=== PATIENT | male | born 1960 | race African-American/Black ===

== ENCOUNTER 2019-01-02 01:30 | Inpatient (IN) | payer OTHER ==
[~2019-01-02] VITALS: Ht 175.3 cm; Wt 120.2 kg
[2019-01-02 01:37] VITALS: BP 188/82
[2019-01-02] MEDS ORDERED: ZESTRIL10 MG PO (01:43)
[2019-01-02 02:03] LABS: ABSOLUTE EOSINOPHILS 0.1 thou/uL (0.0-0.7); ABSOLUTE LYMPHOCYTES 2.7 thou/uL (0.8-5.3); ABSOLUTE NEUTROPHILS 3.6 thou/uL (1.6-8.1); BASOPHILS 0.4 %; EOSINOPHILS 1.4 %; HEMATOCRIT 41.2 % (42.0-52.0); HEMOGLOBIN 13.5 gm/dL (14.0-18.0); LYMPHOCYTES 36.4 %; MCH 27.4 pg (26.0-34.0); MCHC 32.7 g/dL (28.0-37.0); MCV 83.6 fL (80.0-100.0); MPV 7.9 fl. (7.2-11.1); NUCLEATED RBCS 0 /100WBC; PLATELET COUNT* 231 thou/uL (150-400); POLYS 48.8 %; RBC 4.93 mil/uL (4.50-6.00); RDW-CV 14.8 % (10.5-14.5); WBC 7.4 thou/uL (4.0-11.0)
[2019-01-02 02:03] LABS: BE -2.3 mmol/L (-2 to +3); PCO2 34.1 mmHg (35.0-45.0); PO2 102.2 mmHg (75.0-100.0); pH 7.416 (7.340-7.450)
[2019-01-02 02:13] LABS: ANION GAP 6 mmol/L (7-16); BUN 26 mg/dL (7-18); CALCIUM 8.6 mg/dL (8.5-10.1); CHLORIDE 105 mmol/L (98-107); CO2 29 mmol/L (21-32); CREATININE 1.5 mg/dL (0.6-1.3); GLUCOSE 121 mg/dL (70-99); POTASSIUM 4.1 mmol/L (3.5-5.1); SODIUM 140 mmol/L (136-145)
[2019-01-02 02:31] LABS: ALBUMIN 3.5 g/dL (3.4-5.0); ALKALINE PHOSPHATASE 67 U/L (46-116); LIPASE 226 U/L (73-393); NT-PRO BRAIN NAT PEPTIDE 21 pg/mL (<300); SGOT 17 U/L (15-37); SGPT 25 U/L (30-65); TOTAL BILIRUBIN 0.1 mg/dL (<0.1-1.0); TOTAL PROTEIN 6.9 g/dL (6.4-8.2); TROPONIN-I LEVEL <0.06 ng/mL (<0.06)
[2019-01-02 03:12] VITALS: BP 158/91
[2019-01-02 03:26] LABS: URINE BILIRUBIN NEGATIVE (Negative); URINE BLOOD NEGATIVE (Negative); URINE CLARITY CLEAR; URINE COLOR YELLOW; URINE GLUCOSE-RANDOM NEGATIVE (Negative); URINE KETONES NEGATIVE (Negative); URINE LEUKOCYTES-REFLEX NEGATIVE (Negative); URINE NITRITE-REFLEX NEGATIVE (Negative); URINE PROTEIN NEGATIVE (Negative); URINE UROBILINOGEN 0.2 E.U./dl (0.2-1.0)
[2019-01-02 03:33] LABS: AMP/METHAMP Negative (Negative); BARBITURATES Negative (Negative); BENZODIAZEPINES Negative (Negative); COCAINE Negative (Negative); METHADONE Negative (Negative); OPIATES Negative (Negative); PCP Negative (Negative); THC Negative (Negative)
[2019-01-02 03:50] VITALS: BP 146/89
--- NOTE | 2019-01-02 04:49 | NUR ---
PATIENT ARRIVED ON UNIT AT 0330. ALERT AND ORIENTED TIMES FOUR. UP INDEPENDENTLY. 2L O2 VIA NC. NO COMPLAINTS OF PAIN OR DISCOMFORT NOTED. WILL CONTINUE TO MONITOR
[2019-01-02 08:00] VITALS: BP 133/80
--- NOTE | 2019-01-02 11:43 | NUR ---
MET WITH PT TO DISCUSS HOME SITUATION/DC PLANNING. PT LIVES WITH BROTHER AND NEPHEW. HE IS INDEPENDENT AND ACTIVE, USES CPAP. HE FOLLOWS WITH NAKIA CHOI NP AT THE [facility]. PT PLANS TO RETURN HOME AT DC. WILL FOLLOW
[2019-01-02 15:19] VITALS: BP 154/92
--- NOTE | 2019-01-02 18:02 | NUR ---
ASSUMED PT CARE AT 0730, FULL ASSESMENT DONE CHARTED. PT A/O X4, UP AD SUDARSHAN, ON 2L O2 THIS AM, REMOVED THIS AFTERNOON, 02 SAT 95% ON RA. DENIES PAIN, VSS, SB-SR ON THE MONITOR. PT USES CALL LIGHT APPROPRIALTY. WILL CONTINUE WITH PLAN OF CARE.
--- NOTE | 2019-01-02 19:35 | EXE ---
[place] [address] STRESS ECHOCARDIOGRAM Name: SAHILAgROSEMARIE Room: [address] IN [facility]#: [id number] Admission: 01/02/19 Attend Phys: Haresh Troy, Discharge: Date of : 64 Date of Service: 01/02/19 1935 Report #: [id number] THIS REPORT FOR: //name// APPROVED REPORT Study performed: 01/02/2019 14:22:39 Exam: Stress Echocardiogram Indication: Dyspnea Patient Location: In-Patient Stress Nurse: Lissette iLnares RN Room #: [facility] Supervising Physician: Darryl Colón MD Status: routine Ht: 5 ft 9 in HR: 55 bpm BP: 136/81 mmHg Rhythm: NSR Medical History Medications: Lisinopril Cardiac Risk Factors: HTN Procedure The patient underwent an Exercise Stress Test using the Benedicto Protocol. Blood pressure, heart rate, and EKG were monitored. An Echocardiogram was performed by power plant technician in four stages in quad fashion. At peak stress, four selected images were obtained and placed side by side with resting images for comparison. Stress Test Details Stress Test: Exercise stress testing was performed using a Benedicto protocol. HR Resting HR: 55 bpm Max Heart Rate (APMHR): 164 bpm Max HR Achieved: 146 bpm Target HR (85% APMHR): 139 bpm % of APMHR: 89 Recovery HR: 88 bpm HR response to stress: Normal HR response to stress BP Resting BP: 136/81 mmHg Max BP: 231/82 mmHg Recovery BP: 156/80 mmHg BP response to stress: Abnormal hypertensive response to [address] [address] STRESS ECHOCARDIOGRAM Name: ROSEMARIE FRAGOSO Ishaan Room: [address]#: [id number] Admission: 01/02/19 Attend Phys: Haresh Troy, Discharge: Date of : 64 Date of Service: 01/02/19 1935 Report #: [id number] stress. ECG Resting ECG: Sinus Rhythm Stress ECG: Sinus Tachycardia ST Change: None Arrhythmia: None Recovery ECG: Sinus Rhythm Recovery ST Change: None Recovery Arrhythmia: None Clinical Reason for Termination: Completed protocol, high blood pressure Exercise duration: 7 min sec Highest Stage Achieved: Stage 3: 3.4 mph at 14% grade. Exercise capacity: 8.8 METs The patient tolerated standard Benedicto protocol exercise without significant symptoms. Patient exhibited good exercise tolerance. Stress ECG Conclusion The baseline 12-lead EKG shows sinus rhythm without ST or T wave abnormality. EKGs obtained during and post exercise showed sinus rhythm and sinus tachycardia with no significant ST or T wave changes when compared baseline. There were no stress-induced arrhythmias. Pre-Stress Echo The resting Echocardiogram showed normal left ventricular contractility with an estimated Ejection Fraction of about 65-70%. Post-Stress Echo The stress Echocardiogram showed normal left ventricular contractility with an estimated Ejection Fraction of about >70%. Conclusion Clinical Response: Non-ischemic Exercise Capacity: Average Stress ECG Response: Non-ischemic Stress Echo Images: [place] [address] STRESS ECHOCARDIOGRAM Name: ROSEMARIE FRAGOSO Room: [address]#: [id number] Admission: 01/02/19 Attend Phys: Haresh Troy, Discharge: Date of : 64 Date of Service: 01/02/191934 Report #: [id number] Other Information Study Quality: Good <ELECTRONICALLY SIGNED> By: Darryl Colón MD, FACC 01/02/191934 34 34 Darryl Colón MD, FACC /INF
[2019-01-02 20:00] VITALS: BP 142/71
[2019-01-03] VITALS: BP 141/65
[2019-01-03 04:00] VITALS: BP 112/51; BP 138/77
--- NOTE | 2019-01-03 05:46 | NUR ---
ASSUMED CARE OF PT AFTER REPORT AT 1930. PT A&OX4. VSS. PHYSICAL ASSESSMENT COMPLETED AND CHARTED. PT ON RA/CPAP WHEN SLEEPING. PT UPADLIB TO RESTROOM. PT DENIES ANY PAIN OR SOA. PT ABLE TO SLEEP WELL ON BED. CALL LIGHT WITHIN REACH.
[2019-01-03 07:50] VITALS: BP 159/89
--- NOTE | 2019-01-03 10:24 | NUR ---
PT A/O/ TELE TRACKING SR/SB (50'S-70'S) AND ALL VSS ON ROOM AIR. DENIES CP, SOA. PT STATES HIS BREATHING RETURNED TO BASELINE AFTER WEARING O2 IN ER. PT DOES STATES THAT HE OCCASIONALLY FEELS LIGHT HEADED AFTER SITTING DOWN ON TOILET-DENIES STRAINING. LOOKING FORWARD TO DC LATER TODAY. EDUCATED ON SAFETY AND PLAN OF CARE. PLEASE SEE ASSESSMENT FOR ADDITIONAL INFORMATION. WILL CONT TO MONITOR
[2019-01-03] MEDS ORDERED: CEFUROXIME500 MG PO (10:40)
[2019-01-03 10:41] VITALS: BP 159/89
--- NOTE | 2019-01-03 11:00 | EKG ---
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: [facility] : 1960 Requested By: Merlin Lee Order Number: [id number] MD: Manuelito Pappas Measurements Intervals [place] Rate: 67 P: -53 AR: 176 QRS: 18 QRSD: 83 T: 32 QT: 377 QTc: 398 Interpretive Statements Ectopic atrial rhythm Borderline T wave abnormalities No previous ECG available for comparison Electronically Signed On 01-03-2019 11:00:18 CDT by Manuelito Pappas [email or web address] <ELECTRONICALLY SIGNED> By: Manuelito Pappas MD, [facility] 01/03/19 1100 0148 0148 Manuelito Pappas MD, FACC /EPI
[2019-01-03 12:23] VITALS: BP 166/73
== END 2019-01-03 14:40 | disposition home or self-care (01) | DRG 178 ==
LOC: M.ERS 01:30 → M.TBA-ER 02:45 → M.2W 02:45
PROVIDERS: Emergency Medicine; ADMIT Internal Medicine
DX: J69.0 Pneumonitis due to inhalation of food and vomit (principal); N17.9 Acute kidney failure, unspecified; E11.22 Type 2 diabetes mellitus with diabetic chronic kidney disease; I12.9 Hypertensive chronic kidney disease with stage 1 through stage 4 chronic kidney disease, or unspecified chronic kidney disease; N18.2 Chronic kidney disease, stage 2 (mild); Z87.81 Personal history of (healed) traumatic fracture; Z79.899 Other long term (current) drug therapy

== ENCOUNTER 2019-01-06 02:31 | Emergency (ER) | payer OTHER ==
[~2019-01-06] VITALS: Ht 175.3 cm; Wt 117.9 kg
[~2019-01-06 02:31] MED LIST: CEFUROXIME500 MG PO; ZESTRIL10 MG PO
[2019-01-06 02:50] LABS: ABSOLUTE EOSINOPHILS 0.1 thou/uL (0.0-0.7); ABSOLUTE LYMPHOCYTES 2.6 thou/uL (0.8-5.3); ABSOLUTE MONOCYTES 1.2 thou/uL (0.0-1.2); ABSOLUTE NEUTROPHILS 5.3 thou/uL (1.6-8.1); BASOPHILS 0.1 %; EOSINOPHILS 0.9 %; HEMATOCRIT 41.5 % (42.0-52.0); HEMOGLOBIN 13.5 gm/dL (14.0-18.0); LYMPHOCYTES 28.2 %; MCH 27.1 pg (26.0-34.0); MCHC 32.5 g/dL (28.0-37.0); MCV 83.4 fL (80.0-100.0); MONOCYTES 13.3 %; MPV 8.1 fl. (7.2-11.1); NUCLEATED RBCS 0 /100WBC; PLATELET COUNT* 227 thou/uL (150-400); POLYS 57.5 %; RBC 4.98 mil/uL (4.50-6.00); RDW-CV 14.2 % (10.5-14.5); WBC 9.3 thou/uL (4.0-11.0)
[2019-01-06 03:11] LABS: ANION GAP 8 mmol/L (7-16); BUN 23 mg/dL (7-18); CALCIUM 8.4 mg/dL (8.5-10.1); CHLORIDE 104 mmol/L (98-107); CO2 26 mmol/L (21-32); CREATININE 1.2 mg/dL (0.6-1.3); GLUCOSE 116 mg/dL (70-99); POTASSIUM 3.8 mmol/L (3.5-5.1); SODIUM 138 mmol/L (136-145)
[2019-01-06 03:13] LABS: PROTIME 10.7 Seconds (9.20-11.50)
[2019-01-06 03:20] LABS: ALBUMIN 3.4 g/dL (3.4-5.0); ALKALINE PHOSPHATASE 64 U/L (46-116); LIPASE 203 U/L (73-393); SGOT 14 U/L (15-37); SGPT 27 U/L (30-65); TOTAL BILIRUBIN 0.2 mg/dL (<0.1-1.0); TOTAL PROTEIN 6.6 g/dL (6.4-8.2); TROPONIN-I LEVEL <0.06 ng/mL (<0.06)
[2019-01-06] MEDS ORDERED: ZOFRAN ODT4 MG PO (05:41)
[2019-01-06 05:50] VITALS: BP 146/84
--- NOTE | 2019-01-07 16:09 | EKG ---
[place] [address] ELECTROCARDIOGRAM REPORT Name: ROSEMARIE FRAGOSO Room: [facility]#: [id number] Admission: 01/06/19 Attend Phys: Discharge: 01/06/19 Date of : 64 Report #: [id number] THIS REPORT FOR: //name// [facility] ED Test Date: 2019-01-06 Test Time: 02:36:21 Pat Name: ROSEMARIE FRAGOSO Department: Room: Gender: M Arts Therapist: ALMITA : 1960 Requested By: Jojo Pena Order Number: [id number] MD: Jair Escobar Measurements Intervals [place] Rate: 57 P: 8 [place]: 160 QRS: 20 QRSD: 91 T: 59 QT: 409 QTc: 399 Interpretive Statements Sinus rhythm Baseline wander in lead(s) V4 Compared to ECG 01/02/2019 01:48:51 Ectopic atrial rhythm no longer present T-wave abnormality no longer present Electronically Signed On 01-07-2019 16:08:55 CDT by Jair Escobar [email or web address] <ELECTRONICALLY SIGNED> By: Jair Escobar MD, [facility] 01/07/19 1608 0236 0236 Jair Escobar MD, [facility] /EPI
== END 2019-01-06 05:50 | disposition home or self-care (01) ==
LOC: M.ERS 02:31
PROVIDERS: Personal Emergency Response Attendant
DX: I16.0 Hypertensive urgency (principal); R42 Dizziness and giddiness; R11.0 Nausea; I10 Essential (primary) hypertension; G47.30 Sleep apnea, unspecified; Z98.890 Other specified postprocedural states

== ENCOUNTER 2019-10-29 01:58 | Inpatient (IN) | payer OTHER ==
[~2019-10-29] VITALS: Ht 175.3 cm; Wt 117.6 kg
[~2019-10-29 01:58] MED LIST changes: +ZOFRAN ODT4 MG PO
[2019-10-29 02:06] VITALS: BP 145/86
[2019-10-29] MEDS ORDERED: VITAMIN D250 MCG PO (02:10)
[2019-10-29] MEDS ORDERED: ZOLOFT 50 MG TA50 M1 PO (02:11)
[2019-10-29 02:37] LABS: ABSOLUTE EOSINOPHILS 0.1 thou/uL (0.0-0.7); ABSOLUTE LYMPHOCYTES 1.7 thou/uL (0.8-5.3); ABSOLUTE MONOCYTES 0.7 thou/uL (0.0-1.2); ABSOLUTE NEUTROPHILS 5.3 thou/uL (1.6-8.1); BASOPHILS 0.5 %; EOSINOPHILS 1.4 %; HEMATOCRIT 42.6 % (42.0-52.0); HEMOGLOBIN 14.2 gm/dL (14.0-18.0); LYMPHOCYTES 22.1 %; MCH 27.8 pg (26.0-34.0); MCHC 33.2 g/dL (28.0-37.0); MCV 83.6 fL (80.0-100.0); MONOCYTES 9.2 %; MPV 8.3 fl. (7.2-11.1); NUCLEATED RBCS 0 /100WBC; PLATELET COUNT* 247 thou/uL (150-400); POLYS 66.8 %; WBC 7.9 thou/uL (4.0-11.0)
[2019-10-29 02:46] LABS: CALCIUM 8.4 mg/dL (8.5-10.1); CREATININE 1.4 mg/dL (0.6-1.3); POTASSIUM 3.9 mmol/L (3.5-5.1)
[2019-10-29 02:51] LABS: ALBUMIN 3.7 g/dL (3.4-5.0); TOTAL BILIRUBIN 0.3 mg/dL (<0.1-1.0); TOTAL PROTEIN 7.3 g/dL (6.4-8.2)
[2019-10-29 08:41] LABS: CHOLESTEROL 190 mg/dL (<200); HDL CHOLESTEROL 43 mg/dL (>40); LDL CHOLESTEROL 128 mg/dL (<100); TC:HDL 4.4 Ratio (Not establshd); TRIGLYCERIDE 96 mg/dL (<150); VLDL 19 mg/dL (<40)
[2019-10-29 08:44] LABS: SERUM ASSESSMENT Clear
[2019-10-29 10:23] VITALS: BP 123/65
[2019-10-29 12:00] VITALS: BP 123/65
[2019-10-29 12:30] VITALS: BP 136/77
--- NOTE | 2019-10-29 12:34 | NUR ---
RECEVIED REPORT FROM KEZIA RN IN ER OF EXPECTED ADMISSION AT 1140- DX: VERTIGO- PT ARRIVED TO UNIT VIA CART, SBA TO BED AT 1155- RAILROADER PLACED ORDERED, TRACING SB/PVC- PT A&O X4- CONT OF B/B- SBA WITH TRANSFERS FOR SAFETY- VS- 98.5 18 136/77 49 99% ON RA- DIMINISHED LUNG SOUNDS NOTED- ABD SOFT/ROUND/NON-TENDER, BS X4 QUADS- LAST BM REPORTED 10/28/19- IV NOTED TO RIGHT AC INTACT, IVF INFUSSING PRESCIBED- NIH NOTED AT 0- PT DENIES ANY C/O PAIN/DISCOMFORT AT THIS TIME- CALL LIGHT AND PERSONAL BELONGINGS WITH IN REACH- ALL NEEDS MET AT THIS TIME-WCTM
--- NOTE | 2019-10-29 15:43 | 2DMMODE ---
[place] [address] 2 D/M-MODE ECHOCARDIOGRAM Name: RICHMONDROSEMARIE W Room: [place] [address] ADM IN Monica.R.#: [id number] Admission: 10/29/19 Attend Phys: Lida Justice, Discharge: Date of : 64 Date of Service: 10/29/19 1542 Report #: [id number] THIS REPORT FOR: cc: MAK - No family physician/PCP MAK - No family physician/PCP Jair Escobar MD [facility] ~ APPROVED REPORT Study performed: 10/29/2019 14:07:22 EXAM: Comprehensive 2D, Doppler, and color-flow Echocardiogram Patient Location: In-Patient BSA: 2.28 HR: 50 bpm BP: 123/78 mmHg Other Information Study Quality: Fair Indications CVA/TIA Echo Enhancing Agent Indication: Rule out Shunt Agent(s) / Amount(s) Used: Agitated Saline cc 2D Dimensions IVSd: 16.43 (7-11mm) LVOT Diam: 18.98 (18-24mm) LVDd: 41.19 mm PWd: 11.34 (7-11mm) Ascending Ao: 30.19 (22-36mm) LVDs: 29.89 (25-40mm) Aortic Root: 29.28 mm Volumes Left Atrial Volume (Systole) LA ESV Index: 13.80 mL/m2 Aortic Valve AoV Peak Raji.: 1.39 m/s AO Peak Gr.: 7.71 mmHg LVOT Max P.77 mmHg AO Mean Gr.: 4.25 mmHg LVOT Mean P.17 mmHg LVOT Max V: 1.39 m/s AO V2 VTI: 27.08 cm LVOT Mean V: 0.79 m/[place] [address] 2 D/M-MODE ECHOCARDIOGRAM Name: ROSEMARIE FRAGOSO Room: [address] IN ..#: [id number] Admission: 10/29/19 Attend Phys: Lida Justice, Discharge: Date of : 64 Date of Service: 10/29/19 1542 Report #: [id number] YAYA (VTI): 2.81 cm2 LVOT V1 VTI: 26.87 cm Mitral Valve E/A Ratio: 1.18 MV Decel. Time: 198.91 ms MV E Max Raji.: 0.78 m/s MV PHT: 57.68 ms MVA (PHT): 3.81 cm2 TDI E/Lateral E': 5.57 E/Medial E': 7.09 Medial E' Raji.: 0.11 m/s Lateral E' Raji.: 0.14 m/s Pulmonary Valve PV Peak Raji.: 0.90 m/s PV Peak Gr.: 3.25 mmHg Tricuspid Valve RAP Estimate: 5.00 mmHg TR Peak Gr.: 18.34 mmHg RVSP: 23.34 mmHg PA Pressure: 23.34 mmHg Left Ventricle The left ventricle is normal size. There is normal LV segmental wall motion. Borderline concentric left ventricular hypertrophy. Left ventricular systolic function is normal. The left ventricular ejection fraction is within the normal range. LVEF is 60-65%. The left ventricular diastolic function is normal. Right Ventricle The right ventricle is normal size. The right ventricular systolic function is normal. Atria The left atrium size is normal. Injection of bubbles documented no interatrial shunt. The right atrium size is normal. Aortic Valve Mild aortic valve sclerosis. No aortic regurgitation is present. There is no aortic valvular stenosis. Mitral Valve The mitral valve is normal in structure. Mild mitral regurgitation. No evidence of mitral valve stenosis[place] [address] 2 D/M-MODE ECHOCARDIOGRAM Name: ROSEMARIE FRAGOSO Room: [address] IN [facility]#: [id number] Admission: 10/29/19 Attend Phys: Lida Justice, Discharge: Date of : 64 Date of Service: 10/29/19 1542 Report #: [id number] The tricuspid valve is normal in structure. Trace tricuspid regurgitation. Pulmonic Valve The pulmonary valve is normal in structure. There is no pulmonic valvular regurgitation. Great Vessels The aortic root is normal in size. IVC is normal in size and collapses >50% with inspiration. Pericardium There is no pericardial effusion. <Conclusion> The left ventricle is normal size. Borderline concentric left ventricular hypertrophy. Left ventricular systolic function is normal. The left ventricular ejection fraction is within the normal range. LVEF is 60-65%. The right ventricle is normal size. The left atrium size is normal. Mild aortic valve sclerosis. No aortic regurgitation is present. There is no aortic valvular stenosis. The mitral valve is normal in structure. Mild mitral regurgitation. The tricuspid valve is normal in structure. IVC is normal in size and collapses >50% with inspiration. There is no pericardial effusion. There is normal LV segmental wall motion. Injection of bubbles documented no interatrial shunt. <ELECTRONICALLY SIGNED> By: Jair Escobar MD, FACC 10/29/19 1542 1542 1542 Jair Escobar MD, FACC /INF
[2019-10-29 16:00] VITALS: BP 121/62
[2019-10-30] VITALS: BP 134/79
[2019-10-30 04:00] VITALS: BP 130/77
--- NOTE | 2019-10-30 04:23 | NUR ---
PT ALERT ORIENTED. UP AD SUDARSHAN. RN REQUESTED PT CALL FOR STAND BY ASSIST WHEN OOB BC OF PREVIOUS DIZZYNESS. NIHSS 0. ON RA. NA AT 125MLS/HR. TELEMETRY SHOWS SB OCCASIONAL PVCS. PT RESTING QUIETLY.
[2019-10-30 08:00] VITALS: BP 137/83
--- NOTE | 2019-10-30 08:54 | EKG ---
[place] [address] ELECTROCARDIOGRAM REPORT Name: SAHILAgROSEMARIE Room: [place] [address] ADM IN .R.#: [id number] Admission: 10/29/19 Attend Phys: Lida Justice, Discharge: Date of : 64 Date of Service: 10/29/19 0208 Report #: [id number] THIS REPORT FOR: //name// [facility] ED Test Date: 2019-10-29 Test Time: 02:08:40 Pat Name: ROSEMARIE FRAGOSO Department: Room: [facility] Gender: M Research Laboratory Specialist: [place] : 1960 Requested By: Lida Justice Order Number: [id number] MD: Darryl Colón Measurements Intervals [place] Rate: 62 P: 39 NE: 170 QRS: 21 QRSD: 95 T: 75 QT: 407 QTc: 414 Interpretive Statements Sinus rhythm Ventricular premature complex Compared to ECG 01/06/2019 02:36:21 Ventricular premature complex(es) now present Electronically Signed On 10-30-2019 8:54:20 CDT by Darryl Colón [email or web address] <ELECTRONICALLY SIGNED> By: Darryl Colón MD, FACC 10/30/19 0854 7 Darryl Colón MD, LOCATED WITHIN [facility] /EPI
[2019-10-30 12:00] VITALS: BP 133/75
--- NOTE | 2019-10-30 13:42 | NUR ---
ASSUMED PT CARE AT 0730, PT RESTING IN BED AND HAS NO C/O PAIN OR SHORTNESS OF BREATH. PT STATES HE HAS NO DIZZINESS AND OVERALL FEELS BETTER THAN PREVIOUS DAYS. PT GOAL IS TO INCREASE ACTIVITY AND REMAIN FREE FROM DIZZINESS. AM ASSESSMENT CHARTED, MEDS PER MAR, HOURLY ROUNDING OBSERVED, PT A&OX4, CALL LIGHT W/IN REACH, WILL CONTINUE POC.
[2019-10-30 16:00] VITALS: BP 125/72
--- NOTE | 2019-10-30 18:30 | NUR ---
NO ACUTE CHANGES THROUGHOUT SHIFT, PT HAD NO FURTHER C/O DIZZINESS TODAY AND GOT UP TO THE BATHROOM MULTIPLE TIMES W/ NO ISSUES. MEDS PER JUL, HOURLY ROUNDING OBSERVED, CALL LIGHT W/IN REACH, WILL CONTINUE POC.
[2019-10-30 20:39] VITALS: BP 154/86
[2019-10-31] VITALS: BP 144/75
[2019-10-31 02:06] LABS: GLYCOHEMOGLOBIN (HGB A1C) 6.1 % (4.8-5.6)
[2019-10-31 04:00] VITALS: BP 133/64
--- NOTE | 2019-10-31 05:27 | NUR ---
PT IS ABLE TO COMMUNICATE HIS NEEDS TO STAFF EFFECTIVELY. HE HAS DENIED THE NEED FOR PAIN MEDICATION UP TO THIS TIME. POSSIBLE DISCHARGE LATER TODAY.
[2019-10-31 08:00] VITALS: BP 164/88
[2019-10-31] MEDS ORDERED: PREDNISONE 10 M10 MG PO (11:11)
[2019-10-31] MEDS ORDERED: CLOPIDOGREL75 MG PO (11:11)
[2019-10-31] MEDS ORDERED: MECLIZINE HCL25 MG PO (11:11)
[2019-10-31] MEDS ORDERED: ADULT LOW DOSE81 MG PO (11:11)
[2019-10-31] MEDS ORDERED: LIPITOR 40 MG T40 M1 PO (11:11)
--- NOTE | 2019-10-31 11:43 | NUR ---
ASSUMED PT CARE AT 0730, PT IN ROOM AND HAS C/O SOME MINOR DIZZINESS, TREATED W/ PRN MEDS. PT WORKED W/ DR TODAY AND GOAL IS TO DC TO HOME. AM ASSESSMENT CHARTED, MEDS PER MAR, HOURLY ROUNDING OBSERVED, WILL CONTINUE POC.
[2019-10-31 12:19] VITALS: BP 144/90
--- NOTE | 2019-10-31 12:30 | NUR ---
PT.TO DISCHARGE HOME TODAY WITH OUTPT.P.T. HE SAID HE LIVES WITH HIS BROTHER. NO USE OF DME. HE FOLLOWS WITH AT [facility]. ATTEMPTED TO SET UP OUTPT THERAPY THROUGH TRANSITION NURSE AT [facility]. LEFT VM ON OFFFICE VM. NO ONE CALLED CM BACK. PT.SAID HE WOULD SET IT UP THIS WEEK.
[2019-10-31 12:33] VITALS: BP 144/90
--- NOTE | 2019-10-31 15:45 | NUR ---
DC ORDERS RECEIVED. DC INSTRUCTIONS, CARE NOTES, SCRIPTS SENT TO PT PHARMACY AND F/U APPTS. GIVEN TO PT, PT COMMUNICATES UNDERSTANDING OF DC TEACHING. IV AND PROCESS TECHNICIAN REMOVED. PT DC'D BY ELAINE W/ NURSING STAFF TO SISTER'S PERSONAL VEHICAL AT APPROX. 1413
--- NOTE | 2019-10-31 16:45 | NUR ---
PT. D/C TO HOME PRIOR TO O.T. EVAL. PLEASE ORDER FURTHER O.T. SERVICES IF NEEDED.
== END 2019-10-31 14:30 | disposition home or self-care (01) | DRG 66 ==
LOC: M.ERS 01:58 → M.TBA-ER 04:49 → M.2W 04:49
PROVIDERS: Emergency Medicine; Internal Medicine; ADMIT Internal Medicine; ATTEND Internal Medicine
DX: I63.89 Other cerebral infarction (principal); H81.4 Vertigo of central origin; H93.3X3 Disorders of bilateral acoustic nerves; E66.9 Obesity, unspecified; F32.9 Major depressive disorder, single episode, unspecified; I12.9 Hypertensive chronic kidney disease with stage 1 through stage 4 chronic kidney disease, or unspecified chronic kidney disease; R73.03 Prediabetes; N18.2 Chronic kidney disease, stage 2 (mild); Z79.82 Long term (current) use of aspirin; Z68.38 Body mass index [BMI] 38.0-38.9, adult; Z79.899 Other long term (current) drug therapy; Z83.3 Family history of diabetes mellitus; Z82.49 Family history of ischemic heart disease and other diseases of the circulatory system; Z84.1 Family history of disorders of kidney and ureter

== ENCOUNTER 2020-02-27 10:50 | Emergency (ER) | payer OTHER ==
[~2020-02-27] VITALS: Ht 175.3 cm; Wt 108.9 kg
[~2020-02-27 10:50] MED LIST changes: +ADULT LOW DOSE81 MG PO; +CLOPIDOGREL75 MG PO; +LIPITOR 40 MG T40 M1 PO; +MECLIZINE HCL25 MG PO; +PREDNISONE 10 M10 MG PO; +VITAMIN D250 MCG PO; +ZOLOFT 50 MG TA50 M1 PO
[2020-02-27 11:45] LABS: ABSOLUTE LYMPHOCYTES 0.8 thou/uL (0.8-5.3); ABSOLUTE MONOCYTES 0.8 thou/uL (0.0-1.2); ABSOLUTE NEUTROPHILS 5.5 thou/uL (1.6-8.1); BASOPHILS 0.3 %; HEMOGLOBIN 14.9 gm/dL (14.0-18.0); LYMPHOCYTES 11.2 %; MCHC 33.1 g/dL (28.0-37.0); MCV 81.5 fL (80.0-100.0); MONOCYTES 11.3 %; MPV 8.2 fl. (7.2-11.1); NUCLEATED RBCS 0 /100WBC; PLATELET COUNT* 200 thou/uL (150-400); POLYS 77.2 %; RBC 5.52 mil/uL (4.50-6.00); RDW-CV 13.6 % (10.5-14.5); WBC 7.1 thou/uL (4.0-11.0)
[2020-02-27 11:56] LABS: CALCIUM 8.4 mg/dL (8.5-10.1); CREATININE 1.8 mg/dL (0.6-1.3)
[2020-02-27 11:57] LABS: POTASSIUM 2.9 mmol/L (3.5-5.1)
[2020-02-27 12:00] LABS: ALBUMIN 3.3 g/dL (3.4-5.0); MAGNESIUM 2.4 mg/dL (1.8-2.4); TOTAL PROTEIN 7.7 g/dL (6.4-8.2)
[2020-02-27] MEDS ORDERED: ZOFRAN ODT4 MG DISSOLVE (14:48)
[2020-02-27 15:49] VITALS: BP 122/64
--- NOTE | 2020-02-27 16:44 | EKG ---
[place] [address] ELECTROCARDIOGRAM REPORT Name: ROSEMARIE FRAGOSO Room: [facility]#: [id number] Admission: 02/27/20 Attend Phys: Discharge: 02/27/20 Date of : 64 Date of Service: 02/27/20 1128 Report #: [id number] THIS REPORT FOR: //name// [facility] ED Test Date: 2020-02-27 Test Time: 11:28:50 Pat Name: ROSEMARIE FRAGOSO Department: Room: Gender: Manager Endoscopy: TDS : 1960 Requested By: Leland Bejarano Order Number: [id number] MD: Jair Escobar Measurements Intervals [place] Rate: 68 P: 35 [place]: 65 QRS: 31 QRSD: 98 T: 28 QT: 414 QTc: 441 Interpretive Statements Sinus rhythm Multiple ventricular premature complexes Abnormal R-wave progression, early transition Compared to ECG 10/29/2019 02:08:40 No significant change Electronically Signed On 02-27-2020 16:44:28 CDT by Jair Escobar [email or web address] <ELECTRONICALLY SIGNED> By: Jair Escobar MD, FAC 02/27/20 1644 1128 1128 Jair Escobar MD, [facility] /EPI
--- NOTE | 2020-02-27 16:47 | EKG ---
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: : 1960 Requested By: Leland Bejarano Order Number: [id number] MD: Jair Escobar Measurements Intervals [place] Rate: 62 P: 47 RI: 195 QRS: 36 QRSD: 102 T: 15 QT: 423 QTc: 430 Interpretive Statements Sinus rhythm Ventricular bigeminy Abnormal R-wave progression, early transition Baseline wander in lead(s) V4,V5,V6 Compared to ECG 02/27/2020 11:28:50 Short RI interval no longer present Electronically Signed On 02-27-2020 16:46:57 CDT by Jair Escobar [email or web address] <ELECTRONICALLY SIGNED> By: Jair Escobar MD, FACC 02/27/20 1646 145 145 Jair Escobar MD, FACC /EPI
== END 2020-02-27 15:51 | disposition home or self-care (01) ==
LOC: M.ERS 10:50
PROVIDERS: Emergency Medicine Emergency Medical Services
DX: U07.1 COVID-19 (principal); I10 Essential (primary) hypertension; E66.9 Obesity, unspecified; Z79.899 Other long term (current) drug therapy